=== PATIENT | female | born 1985 | race Caucasian/White ===

== ENCOUNTER 2016-04-29 08:26 | Day surgery (SDC) | payer BC ==
[~2016-04-29 08:26] MED LIST: RINGERS SOLUTION,LACTATED 1,000 ML IV PRN
[2016-04-29] MEDS ORDERED: RINGERS SOLUTION,LACTATED 1,000 ML IV ONE (09:07)
[2016-04-29 09:21] LABS: Hematocrit 35.5 % (37.0-47.0); Hemoglobin 11.8 gm/dL (12.5-16.0); Mean Cell Volume 93.4 fl (78-100); Mean Corpuscular Hemoglobin 31.1 pg (27-31); Mean Corpuscular Hgb Conc 33.2 g/dl (32-36); Mean Platelet Volume 10.9 fl (6.0-9.5); Neutrophil # 3.2 K/mm3 (1.3-6.0); Neutrophil % 63.2 % (42-75.0); Platelet Count 194 K/mm3 (150-450); Red Cell Distribution Width 12.2 % (11.5-14.0); White Blood Count 5.1 K/mm3 (4.0-10.5)
--- NOTE | 2016-04-29 10:29 | OR ---
Operative Report - Dictated Report Narrative: Operative Report 04/29/2016 - NovaSure Endometrial Ablation, Hysteroscopy Preoperative Diagnosis: Menorrhagia Postoperative Diagnosis: Menorrhagia Procedure: [facility]Sure Endometrial Ablation, Hysteroscopy Surgeon: Heather Cueto M.D. Anesthesia: Robert Rawls CRNA, IV sedation Findings: Uterine sound 10 cm, Cervical length 4.5 cm, Cavity length 5.5 cm, Cavity width 4.7 cm, Power 142, Time 72 sec, The entire cavity of the uterus was cauterized to the internal cervical os Fluids: 100 ml EBL: Minimal Drains: None Condition: Stable Complications: None Procedure: The patient was taken the operating room with IV fluids running. She was placed in the dorsal lithotomy position after IV anesthesia was induced. She was prepped and draped in the normal sterile fashion. A bivalve speculum was placed into the vagina. The anterior lip of the cervix was grasped with the single-tooth tenaculum. The uterine sound was introduced into the endometrial cavity. The depth was 10 cm. The cervix was dilated with Lázaro dilators. The hysteroscope was introduced into the uterine cavity. Cavity was distended with normal saline. The uterine cavity was grossly normal in appearance. The hysteroscope was removed from the cavity. During removal of the hysteroscope the cervical length was measured using the hysteroscope. The cervical length was 4.5 cm. The cavity length was calculated to be 5.5 cm. The NovaSure endometrial ablation device was introduced in the cavity with the setting of 5.5 centimeters for the length of the cavity. After maneuvering the device the cavity width was found to be 4.7 cm. the cavity was tested for any perforations and was cleared. The device was started and cauterization was performed. The power was 142. The cauterization time was 72 sec. The device was removed from the cavity. The hysteroscope was once again introduced into the cavity. The entire cavity was cauterized. The hysteroscope was removed. The single-tooth tenaculum was removed from the anterior lip of the cervix. Site was hemostatic. The speculum was removed from the vagina. Sponge counts were correct x 2. The patient tolerated the procedure well.
[2016-04-29] MEDS ORDERED: oxyCODONE HCL/ACETAMINOPHEN 1 TAB TABLET PO PRN (10:34)
[2016-04-29] MEDS ORDERED: IBUPROFEN 600 MG TABLET PO PRN (10:34)
[2016-04-29 11:44] VITALS: BP 115/69
== END 2016-04-29 08:27 | disposition home or self-care (01) ==
LOC: AMB 08:26
PROVIDERS: ATTEND Obstetrics & Gynecology
PROC: 0U5B8ZZ Destruction of Endometrium, Via Natural or Artificial Opening Endoscopic (ICD-10-PCS; principal; 2016-04-29 10:05)
DX: N92.0 Excessive and frequent menstruation with regular cycle (principal); Z68.28 Body mass index [BMI] 28.0-28.9, adult